=== PATIENT | female | born 2000 | race Two or more races ===

== ENCOUNTER 2024-02-03 19:58 | Emergency (ER) | payer MEDICAID, OTHER ==
[~2024-02-03] VITALS: Ht 165.1 cm; Wt 100.6 kg
[2024-02-03 20:01] VITALS: BP 136/81; PULSE 109; RESP 18; O2SAT 99
[2024-02-04] MEDS ORDERED: METH4PAK PO (11:20)
[2024-02-04] MEDS ORDERED: HYDR-3682 PO (11:20)
[2024-02-04] MEDS ORDERED: EPIN0.3I24 IJ (11:20)
== END 2024-02-03 20:58 | disposition left against medical advice (07) ==
LOC: ER 19:58
DX: R21 Rash and other nonspecific skin eruption (principal); Z53.21 Procedure and treatment not carried out due to patient leaving prior to being seen by health care provider

== ENCOUNTER 2024-02-04 09:44 | Emergency (ER) | payer MEDICAID ==
[~2024-02-04] VITALS: Ht 165.1 cm; Wt 99.0 kg
[2024-02-04 11:11] VITALS: BP 130/81; PULSE 117; RESP 16; TEMP 98; O2SAT 97
[2024-02-04] MEDS ORDERED: HYDR-3682 PO (11:20)
[2024-02-04] MEDS ORDERED: EPIN0.3I24 IJ (11:20)
[2024-02-04] MEDS ORDERED: METH4PAK PO (11:20)
[2024-02-04] MEDS: FAMOTIDINE (10MG/ML) 2ML VL IV ONE (12:11)
[2024-02-04] MEDS: diphenhdrAMINE HCL 50 MG/1 ML VL IV ONE (12:11)
[2024-02-04] MEDS: methylPREDNISolone SOD SUCC 125 MG/2 ML VL IV ONE (12:11)
== END 2024-02-04 13:36 | disposition home or self-care (01) ==
LOC: ER 09:44
DX: T78.40XA Allergy, unspecified, initial encounter (principal); X58.XXXA Exposure to other specified factors, initial encounter
CPT/HCPCS: 96374; 96375; 99284; J1200; J2919; J3490